=== PATIENT | female | born 1945 | race Caucasian/White ===

== ENCOUNTER 2019-08-16 19:40 | Emergency (ER) | payer OTHER ==
[~2019-08-16] VITALS: Ht 170.2 cm; Wt 81.6 kg
[2019-08-16 20:08] VITALS: Ht 170.2 cm; Wt 81.6 kg
[2019-08-16 20:57] LABS: BASOPHIL % 0.3 % (0-2); PLATELET COUNT 236 x10^3mcL (130-400); RED CELL DISTRIBUTION WIDTH 12.5 % (11.5-14.5)
[2019-08-16 21:31] LABS: ALBUMIN 3.4 g/dL (3.4-5.0); BILIRUBIN TOTAL 0.9 mg/dL (0.20-1.00); CALCIUM 9.8 mg/dL (8.5-10.1); CARBON DIOXIDE 29.9 mmol/L (21-32); CHLORIDE SERUM 101 mmol/L (98-107); CREATININE SERUM 1.4 mg/dL (0.6-1.0); GLUCOSE SERUM 219 mg/dL (74-106); POTASSIUM SERUM 3.6 mmol/L (3.5-5.1); SODIUM SERUM 139 mmol/L (136-145); TOTAL PROTEIN, SERUM 7.7 g/dL (6.4-8.2)
[2019-08-16 21:32] LABS: ALKALINE PHOSPHATASE 69 U/L (46-116); ALT/SGPT 21 U/L (14-59); AST/SGOT 12 U/L (15-37)
[2019-08-16 23:59] VITALS: BP 169/83
== END 2019-08-16 23:59 | disposition short-term general hospital (02) ==
LOC: ED 19:40
PROVIDERS: Emergency Medicine
DX: S12.111A Posterior displaced Type II dens fracture, initial encounter for closed fracture (principal); S01.81XD Laceration without foreign body of other part of head, subsequent encounter; S80.11XA Contusion of right lower leg, initial encounter; I10 Essential (primary) hypertension; X58.XXXA Exposure to other specified factors, initial encounter; Y93.89 Activity, other specified; Y92.89 Other specified places as the place of occurrence of the external cause; Y99.8 Other external cause status
CPT/HCPCS: G0480; J3010; J7030